=== PATIENT | male | born 1950 | race Caucasian/White ===

== ENCOUNTER 2016-11-25 08:18 | Inpatient (IN) | payer BC ==
[~2016-11-25] VITALS: Ht 172.7 cm; Wt 72.7 kg
[~2016-11-25 08:18] MED LIST: ALBUAER2 INH; AMB10 PO; ANT25 PO; ASCA500 PO; ATV2 PO; CETI10TA84 PO; CHOL100010 PO; CLX20 PO; FLNIN NAE; FSM70 PO; LEVO50TA60 PO; OMEG10007 PO; UNABLE; VITA400C15 PO
[2016-11-25] MEDS ORDERED: SODIUM CHLORIDE 0.9% 1000ML 1,000 ML IV STA (08:31)
[2016-11-25 08:43] LABS: BASO % 0.6 %; BASO ABS # 0.04 K/uL (0-0.2); COMPLETE YES; EOS % 5.8 %; HEMATOCRIT 46.3 % (42-52); IG% 0.1 %; LYMPH % 30.6 %; LYMPH ABS # 2.07 K/uL (1.2-3.4); MEAN CELL VOLUME 96.7 fL (80-100); MEAN CORPUSCULAR HEMOGLOBIN 34.7 pg (25-34); MEAN CORPUSCULAR HGB CONC 35.9 g/dl (32-36); MEAN PLATELET VOLUME 9.5 fL (7.4-10.4); NEUT % 55.9 %; PLATELET COUNT 219 K/uL (130-400); RED BLOOD COUNT 4.79 M/uL (4.7-6.1); WHITE BLOOD COUNT 6.76 K/uL (4.8-10.8)
--- NOTE | 2016-11-25 08:49 | DIAGNOSTIC IMAGING REPORT ---
SINGLE VIEW CHEST CLINICAL HISTORY: Atypical chest pain. FINDINGS: An AP, portable, upright chest radiograph is obtained. No prior studies are available for comparison at the time of dictation. The cardiomediastinal silhouette is unremarkable. The lungs and pleural spaces are clear. No pneumothorax is seen. The bony thorax is grossly intact. IMPRESSION: No active disease in the chest. Electronically signed by: Tawanda Metz M.D. 11/25/2016 8:48 AM Dictated Date/Time: 11/25/2016 8:47 AM
[2016-11-25 08:52] LABS: PARTIAL THROMBOPLASTIN RATIO 0.9; PROTHROMBIN TIME (PATIENT) 10.5 SECONDS (9.0-12.0)
[2016-11-25 09:00] LABS: BUN/CREATININE RATIO 12.8 (10-20); CREATININE 1.3 mg/dl (0.60-1.40); MAGNESIUM 2.2 mg/dl (1.8-2.4); POTASSIUM 4.3 mmol/L (3.5-5.1)
[2016-11-25 09:10] LABS: CKMB/CK RATIO 1.8 (0-3.0); THYROID STIMULATING HORMONE 5.94 uIu/ml (0.300-4.500)
[2016-11-25] MEDS ORDERED: VITACAP26 (09:11)
[2016-11-25] MEDS ORDERED: VNTHFA/IN INH (09:11)
[2016-11-25] MEDS ORDERED: ATV/2 (09:11)
[2016-11-25] MEDS ORDERED: CHOL1000 PO (09:11)
[2016-11-25] MEDS ORDERED: CITA10TA8 PO (09:11)
[2016-11-25] MEDS ORDERED: FLUT0.15 (09:11)
[2016-11-25] MEDS ORDERED: LEVO25TA5 PO (09:11)
[2016-11-25] MEDS ORDERED: ASPIRIN 324 MG CHEW PO STA (09:12)
[2016-11-25] MEDS ORDERED: LORAZEPAM 1 MG TAB PO PRN (10:00)
[2016-11-25] MEDS ORDERED: ZOLPIDEM TARTRATE 5 MG TAB PO PRN (10:00)
[2016-11-25] MEDS ORDERED: POLYETHYLENE (MIRALAX) 17 GM PACK PO PRN (10:00)
[2016-11-25] MEDS ORDERED: NITROGLYCERIN 0.4 MG SL PER TAB CHARGE SL PRN (10:00)
[2016-11-25] MEDS ORDERED: MAGNESIUM HYDROXIDE SUSP 30 ML UDC PO PRN (10:00)
[2016-11-25] MEDS ORDERED: ASPIRIN 325 MG ECTAB PO STA (10:11)
[2016-11-25 10:15] VITALS: O2SAT 96; Ht 172.7 cm; Wt 72.7 kg
--- NOTE | 2016-11-25 10:26 | History and Physical ---
History & Physical Date & Time of Service: Nov 25, 2016 at 10:10 Chief Complaint: Chest Pain Primary Care Physician: Florencio Bertrand M.D. History of Present Illness Source: patient 66 years old man with past medical Hx of border line HTN, anxiety, Meniere's disease and border line diabetes presented to ED with Chest pain associated with nausea, vomiting and dizziness. pain was severe and was referred to right shoulder. Associated with nausea and dizziness, He threw up at home. He drove his car to his PCP (he thought it is his Meniere's disease), had to stop the car to throw up. when he arrived to his PCP they called an Ambulance for him because of his Chest pain. he does not smoke drinks alcohol socially He was found to have new onset Afib Past Medical/Surgical History chest pain New onset A fib border line HTN border line diabetes anxiety Meniere's disease hypothyroidism Family History No pertinent family history father has HTN Social History Smoking Status: Never Smoker Smokeless Tobacco Use: No Alcohol Use: socially Multi-Drug Resistant Organisms History of MDRO: No Allergies Coded Allergies: Codeine (Unverified Allergy, Mild, 07/13/09) Uncoded Allergies: TICK PREVENTION (Allergy, Unknown, unknown, 11/25/16) Home Medications Scheduled Albuterol Hfa (Ventolin Hfa), 2-4 PUFFS INH Q6H Cetirizine (Zyrtec), 10 MG PO DAILY Cholecalciferol (Vitamin D3), 1 TAB PO DAILY Citalopram Hydrobromide (Celexa), 1 TAB PO DAILY Fish Oil ([place]-3), 2 CAP PO DAILY Levothyroxine Sodium (Levothyroxine Sodium), 1 TAB PO DAILY Miscellaneous Medications Fluticasone Propionate (Nasal) (Flonase Allergy Relief) Lorazepam (Ativan) Vitamins C & E (Vitamin C) Review of Systems Constitutional: + sweats, No fever, No chills, No weight loss, No weakness, No fatigue, No problem reported Eyes: No worsening of vision, No eye pain, No redness, No discharge, No diplopia, No problem reported ENT: No hearing loss, No unusual epistaxis, No nasal symptoms, No sore throat, No tinnitus, No dental problems, No trouble swallowing, No problem reported Respiratory: No cough, No sputum, No wheezing, No shortness of breath, No dyspnea on exertion, No dyspnea at rest, No hemoptysis, No problem reported Cardiovascular: + chest pain, No orthopnea, No PND, No edema, No claudication, No palpitations, No problem reported Abdomen: + nausea, + vomiting, No pain, No diarrhea, No constipation, No GI bleeding, No problem reported Musculoskeletal: No joint pain, No muscle pain, No swelling, No calf pain, No problem reported Genitourinary - Male: No hematuria, No dysuria, No urinary frequency, No urinary urgency, No urinary hesitancy, No urinary retention, No urinary incontinence, No penile discharge, No lesions, No impotence, No problem reported Neurologic: No memory loss, No paralysis, No weakness, No numbness/tingling, No vertigo, No balance problems, No problem reported Psychiatric: No depression symptoms, No anhedonism, No anxiety, No insomnia, No substance abuse, No problem reported Endocrine: No fatigue, No excessive thirst, No excessive urination, No problem reported Hematologic / Lymphatic: No abnormal bleeding/bruising, No clotting problems, No swollen lymph nodes, No night sweats, No problem reported Integumentary: No rash, No itch, No new/changing skin lesions, No color change , No bleeding, No problem reported Allergic / Immunologic: No environmental allergies, No seasonal allergies, No pet sensitivities, No food allergies, No hives, No frequent infections, No poor healing, No prolonged convalescence, No problem reported Physical Exam Vital Signs Date Time Temp Pulse Resp B/P (MAP) Pulse Ox O2 Delivery O2 Flow Rate FiO2 11/25/16 09:33 84 24 149/88 96 11/25/16 09:18 81 19 97 11/25/16 09:03 79 16 99 11/25/16 08:48 82 21 98 11/25/16 08:33 99 Room Air 11/25/16 08:33 82 29 97 11/25/16 08:31 149/88 11/25/16 08:31 36.5 86 17 149/88 99 Room Air 11/25/16 08:28 Room Air 11/25/16 08:26 89 General Appearance: WD/WN, no apparent distress Head: normocephalic, atraumatic Eyes: normal inspection, EOMI ENT: normal ENT inspection, + pertinent finding (decreased hearing) Neck: supple, no adenopathy, thyroid normal Respiratory/Chest: chest non-tender, lungs clear, normal breath sounds, no respiratory distress, no accessory muscle use Cardiovascular: no gallop, no murmur, + irregularly irregular Abdomen/GI: normal bowel sounds, non tender, soft, no organomegaly, no pulsatile mass, normal rectal exam Genitourinary - Male: normal male genitalia, normal phallus, normal testicles Back: normal inspection, no CVA tenderness, no muscle spasm Extremities/Musculoskelatal: normal inspection, no calf tenderness, normal capillary refill, no pedal edema Neurologic/Psych: 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 as tested, no motor/sensory deficits, alert, normal mood/affect, normal reflexes, oriented x 3 Skin: normal color, warm/dry, no rash Diagnostics Laboratory Results Results Past 24 Hours Test 11/25/16 08:30 11/25/16 09:43 Range/Units White Blood Count 6.76 4.8-10.8 K/uL Red Blood Count 4.79 4.7-6.1 M/uL Hemoglobin 16.6 14.0-18.0 g/dL Hematocrit 46.3 42-52 % Mean Corpuscular Volume 96.7 80-100 fL Mean Corpuscular Hemoglobin 34.7 25-34 pg Mean Corpuscular Hemoglobin Concent 35.9 32-36 g/dl Platelet Count 219 130-400 K/uL Mean Platelet Volume 9.5 7.4-10.4 fL Neutrophils (%) (Auto) 55.9 % Lymphocytes (%) (Auto) 30.6 % Monocytes (%) (Auto) 7.0 % Eosinophils (%) (Auto) 5.8 % Basophils (%) (Auto) 0.6 % Neutrophils # (Auto) 3.78 1.4-6.5 K/uL Lymphocytes # (Auto) 2.07 1.2-3.4 K/uL Monocytes # (Auto) 0.47 0.11-0.59 K/uL Eosinophils # (Auto) 0.39 0-0.5 K/uL Basophils # (Auto) 0.04 0-0.2 K/uL RDW Standard Deviation 41.4 36.4-46.3 fL RDW Coefficient of Variation 11.8 11.5-14.5 % Immature Granulocyte % (Auto) 0.1 % Immature Granulocyte # (Auto) 0.01 0.00-0.02 K/uL Prothrombin Time 10.5 9.0-12.0 SECONDS Prothromb Time International Ratio 1.0 0.9-1.1 Activated Partial Thromboplast Time 24.1 21.0-31.0 SECONDS Partial Thromboplastin Ratio 0.9 Sodium Level 141 136-145 mmol/L Potassium Level 4.3 3.5-5.1 mmol/L Chloride Level 105 98-107 mmol/L Carbon Dioxide Level 30 21-32 mmol/L Anion Gap 6.0 3-11 mmol/L Blood Urea Nitrogen 17 7-18 mg/dl Creatinine 1.30 0.60-1.40 mg/dl Est Creatinine Clear Calc Drug Dose 54.1 ml/min Estimated GFR () 65.9 Estimated GFR (Non- 56.9 BUN/Creatinine Ratio 12.8 10-20 Random Glucose 100 70-99 mg/dl Calcium Level 9.0 8.5-10.1 mg/dl Magnesium Level 2.2 1.8-2.4 mg/dl Total Creatine Kinase 116 39-308 U/L Creatine Kinase MB 2.1 0.5-3.6 ng/ml Creatine Kinase MB Ratio 1.8 0-3.0 Troponin I 0.015 0-0.045 ng/ml Thyroid Stimulating Hormone (TSH) 5.940 0.300-4.500 uIu/ml Free Thyroxine 1.10 0.80-1.60 ng/dl Bedside D-Dimer 156 0-450 ng/mlFEU CXR normal other (Afib rate controlled) Impression Assessment and Plan 66 years old man with past medical Hx of border line HTN and border line diabetes presented to ED with Chest pain associated with nausea, vomiting and dizziness. pain was severe and was referred to right shoulder. He was found to have new onset Afib Assessment: chest pain New onset A fib border line HTN border line diabetes anxiety Meniere's disease hypothyroidism Plan: I called his PCP office, recent labs showed LDL of 97 and HgbA1C of 5.4 giving his border line HTN his [id number] Score would be 2 Will start him on heparin drip until seen by land conservation specialist will also start low dose lopressor start baby aspirin, that can be stopped if his stress test is negative and heparin can be switched to Eliquis LDL of 97 is border line, will start low dose lipitor as well 2D echo is ordered also sleep pulse ox recorder is ordered to R/O sleep apnea, please follow up on that pepcid was given for GI prophylaxis and to treat any GI source of his pain. VTE Prophylaxis VTE Risk Assessment Done? Y/N: Yes Risk Level: High
[2016-11-25] MEDS ORDERED: HEPARIN 25000 UNIT/500 ML D5W ONE (12:28)
[2016-11-25] MEDS: SODIUM CHLORIDE 0.9% 1000ML 1,000 ML IV SCH (13:30)
[2016-11-25] MEDS ORDERED: HEPARIN IV LOW DOSE NO BOLUS SCH (13:30)
[2016-11-25] MEDS ORDERED: FAMOTIDINE IV INJ 20 MG in DEXTROSE 5% 100ML 100 ML IV ONE (14:00)
[2016-11-25] MEDS ORDERED: ATORVASTATIN 10 MG TAB PO ONE (14:00)
--- NOTE | 2016-11-25 14:26 | CARDIOLOGY CONSULTATION REPORT ---
DATE OF CONSULTATION: 11/25/2016 DATE OF CONSULTATION: 11/25/2016. REASON FOR CONSULTATION: 1. Chest pain, uncertain etiology. 2. Newly diagnosed atrial fibrillation with controlled ventricular response rate. HISTORY OF PRESENT ILLNESS: Mr. Calderón is a very pleasant 66-year-old white male with a history of Meniere's disease, Anxiety, borderline Hypertension, and Prediabetes who presented acutely to the Emergency Room today complaining of some right sided chest discomfort - described as a pressure - in his right chest, which started this morning while he was getting ready for work. He noted some associated nausea, but denied any associated diaphoresis or dyspnea. It was not worse with exertion, nor did it improve when he sat down and rested. Admittedly, the patient has been under a tremendous amount of stress lately. His adffwodp-nw-aew (and mother to his 5-year-old grandson) of a heroin overdose with in the past 5 weeks, and he recently attended a memorial service for her. This had been tremendously stressful for him -- as he also lost his at a young age (non-Hodgkin's lymphoma) and also had a daughter with Down's syndrome of congenital heart disease at the age of 30. He has been ruminating on these issues almost nonstop since he heard of his jtsvxpir-[id number]'s passing. Nonetheless, the patient went to this PCPs office to get an acute visit, and they referred him to the Emergency Room. The patient was incidentally noted to be in Atrial Fibrillation with a controlled ventricular response rate (V-rate in the 80s at rest). The patient denies any prior cardiac history or prior cardiac events. He is active on a daily basis doing a " workout", running up to 3 miles. The last time he ran was a week ago, and he did not have any decrease in his exertional tolerance, nor did he experience any limiting cardiopulmonary symptoms. The patient denies any chest pain at the present time. He specifically denies any history of exertional chest pain, heaviness, tightness, pressure or discomfort. No shortness of breath, unusual dyspnea on exertion, or new recent changes in exertional tolerance. He denies any orthopnea or PND. He denies any palpations, tachypalpitations, syncope, or near syncope. The patient does admit to chronic vertigo associated with Meniere's disease. PAST MEDICAL HISTORY: 1. Borderline Hypertension. 2. Prediabetes mellitus. 3. Dyslipidemia, on long-term statin. 4. History of anxiety disorder. 5. Meniere's disease. 6. Hypothyroidism. 7. He specifically denies any history of CAD, VA, CHF, rheumatic fever or prior cardiac dysrhythmias. He denies any history of stroke or mini-stroke. SOCIAL HISTORY: The patient is . He has 2 grown sons, but his [id number] recently of a heroin overdose. The patient had a daughter who at the age of 30 from Down syndrome with congenital heart disease. The patient is a nonsmoker. He drinks alcohol socially. Exercises on a daily basis. 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 He is also earning his master's degree in [employer]. FAMILY HISTORY: 1. No family history of premature coronary artery disease. 2. Father with hypertension. 3. Daughter with Down syndrome and congenital heart disease. MEDICATIONS: 1. Celexa 20 mg daily. 2. Aspirin 81 mg daily. 3. Lipitor 10 mg daily. 4. Levothyroxine 25 mcg daily. 5. Toprol XL 25 mg daily. 6. Heparin drip. 7. Famotidine 20 mg IV q. 12 hours. 8. Lorazepam 1 mg p.o. q. 6 hours p.r.n. for anxiety. 9. Milk of magnesia p.r.n. 10. Ambien 5 mg p.o. at bedtime p.r.n. for insomnia. 11. Sublingual nitroglycerin p.r.n. 12. MiraLax 17 grams daily. 13. Normal saline 50 mL per hour. ALLERGIES: CODEINE. PHYSICAL EXAMINATION: VITAL SIGNS: Temperature 36.5*C, pulse 80-85 and irregularly irregular, respiration rate 14 and unlabored, blood pressure 128/90, SPO2 is 96% on room air. GENERAL: The patient is in no acute distress. HEAD, EYES, EARS, NOSE, AND THROAT: Head is atraumatic, normocephalic. EOM intact. Sclera anicteric. Faces symmetric. No perioral cyanosis. Mucous membranes moist. NECK: Without thyromegaly, adenopathy or JVD. Carotid upstrokes +2 bilaterally without bruits. CHEST AND LUNGS: Are clear to auscultation throughout all lung duval. No wheezes, rales or rhonchi. CARDIOVASCULAR SYSTEM: S1 and S2 are irregularly irregular with a controlled ventricular response rate. No murmurs, gallops, or rubs. PMI is nondisplaced. No lifts, heaves, or thrills. No abdominal, aortic or renal bruits. ABDOMINAL EXAMINATION: Bowel sounds present. No masses, organomegaly, or tenderness. EXTREMITIES: Are without clubbing, cyanosis or edema. Intact radial and posterior tibial pulses bilaterally. NEUROLOGIC EXAMINATION: Patient is awake, alert and interactive. He answers questions appropriately. Speech is clear. Normal movement in all 4 extremities. [place] pattern not assessed. EKG on admission shows atrial fibrillation with a controlled ventricular response rate of 72 beats per minute, no acute changes noted. LABORATORY DATA: White blood cell count 6.76, hemoglobin 16.6 g/dL, hematocrit 46.3%, and platelet count 219,000. Sodium is 141 mmol/L, potassium 4.3 mmol/L, BUN 17, creatinine 1.30 mg/dL. Serum magnesium level normal at 2.2. Total CK is 116 units per liter with CK-MB of 2.1 ng/mL. Troponin I 0.015 ng/mL. TSH is elevated at 5.940 uIU/mL. Coag studies and D-dimer unremarkable. Chest x-ray shows no acute changes. Current telemetry monitoring reveals atrial fibrillation with controlled ventricular response rate. ASSESSMENT: 1. Right sided chest pain since this morning, uncertain etiology, doubt that it is related to rate controlled atrial fibrillation -- possibly a stress reaction. 2. Newly diagnosed Atrial Fibrillation with controlled ventricular response rate. 3. No palpitations, or sensation of irregular or abnormal pulse rate. 4. Dyslipidemia, on mcc statin. 5. Borderline hypertension. 6. Prediabetes mellitus. 7. Recent loss of loved one secondary to heroin overdose. 8. Anxiety/stress reaction. PLAN: 1. The patient was noted to be in rate controlled atrial fibrillation today. We had a very long discussion regarding what this rhythm is, the natural history of atrial fibrillation, as well as various management strategies. I truly doubt that his atrial fibrillation is contributing to his chest pain as his heart rate is very well controlled. His A-Fib is likely an incidental finding. 2. Agree with admission for serial cardiac enzymes to further evaluate right sided chest pain. This may be a manifestation of stress and anxiety considering his recent loss of a family member and significant familial losses throughout his lifetime ( and daughter). 3. Agree with using low dose beta chantal, Toprol XL 25 mg a day. 4. Agree with heparin drip for the time being. 5. The patient's CHADS/VASc score is minimum of 2. He would benefit by long-term anticoagulation. 6. Would recommend starting on Eliquis 5 mg b.i.d. or Xarelto 20 mg daily upon discharge. Continue heparin drip in the meantime. 7. Monitor daily laboratories. 8. Agree with telemetry monitoring. 9. We will plan on following up with this patient within 3 weeks of discharge, and if he remains in atrial fibrillation could consider an elective electrical cardioversion. 10. We will continue to follow this patient along while hospitalized. CONNIE
--- NOTE | 2016-11-25 15:08 | EMERGENCY ROOM VISIT NOTE ---
History Report prepared by Zoltan: Pura Godoy Under the Supervision of: Dr. Tyler Xiao M.D. First contact with patient: 08:20 Chief Complaint: CHEST PAIN Stated Complaint: CHEST PAIN History of Present Illness The patient is a 66 year old male who presents to the Emergency Room with complaints of worsening chest pain starting this morning. The patient describes the pain as a pressure on his chest. He states that the chest pain was spread out originally, but that he runs often and thought nothing of it. He states that he called the ambulance because the pain started to centralize in his chest and go down his left arm. The patient denies pain going into his neck and abdominal pain. He states that he was nauseous and vomited, but had nothing come up. He states that he does take Ativan for anxiety. He currently states that his chest pain has subsided. The patient reports that he does regularly take an Aspirin. Source of History: patient Onset: this morning Position: chest Quality: pressure Timing: worsening Associated Symptoms: + nausea, + vomiting, No abdominal pain Note: The patient complains of pain radiating into left arm. The patient denies the pain radiating into his neck. Review of Systems See HPI for pertinent positives & negatives. A total of 10 systems reviewed and were otherwise negative. Past Medical & Surgical Medical Problems: (1) Anxiety (2) New onset a-fib Family History No pertinent family history Social History Marital Status: Housing Status: lives alone Occupation Status: employed Current/Historical Medications Scheduled Albuterol Hfa (Ventolin Hfa), 2-4 PUFFS INH Q6H Cetirizine (Zyrtec), 10 MG PO DAILY Cholecalciferol (Vitamin D3), 1 TAB PO DAILY Citalopram Hydrobromide (Celexa), 1 TAB PO DAILY Fish Oil ([place]-3), 2 CAP PO DAILY Levothyroxine Sodium (Levothyroxine Sodium), 1 TAB PO DAILY Miscellaneous Medications Fluticasone Propionate (Nasal) (Flonase Allergy Relief) Lorazepam (Ativan) Vitamins C & E (Vitamin C) Allergies Coded Allergies: Codeine (Unverified Allergy, Mild, 07/13/09) Uncoded Allergies: TICK PREVENTION (Allergy, Unknown, unknown, 11/25/16) Physical Exam Vital Signs Date Time Temp Pulse Resp B/P (MAP) Pulse Ox O2 Delivery O2 Flow Rate FiO2 11/25/16 09:33 84 24 149/88 96 11/25/16 09:18 81 19 97 11/25/16 09:03 79 16 99 11/25/16 08:48 82 21 98 11/25/16 08:33 99 Room Air 11/25/16 08:33 82 29 97 11/25/16 08:31 149/88 11/25/16 08:31 36.5 86 17 149/88 99 Room Air 11/25/16 08:28 Room Air 11/25/16 08:26 89 Physical Exam GENERAL: Patient is anxious appearing and in no acute distress. HEENT: No acute trauma, normocephalic atraumatic, mucous membranes moist, no nasal congestion, no scleral icterus. NECK: No stridor, no adenopathy, no meningismus, trachea is midline. LUNGS: No dyspnea. Clear to auscultation and equal bilaterally. No wheeze, no rhonchi. HEART: Irregular rate and rhythm. No murmurs, rubs, gallops appreciated. ABDOMEN: Soft, nontender, bowel sounds positive, no masses appreciated, no peritonitis. BACK: No midline tenderness, no CVA tenderness EXTREMITIES: Normal motion all extremities, no cyanosis, no edema. NEUROLOGIC: Alert and oriented, no acute motor or sensory deficits, no focal weakness, cranial nerves grossly intact. SKIN: No rash, no jaundice, no diaphoresis. Medical Decision & Procedures ER Provider Diagnostic Interpretation: Radiology results and stated below per my review and radiologist interpretation: SINGLE VIEW CHEST CLINICAL HISTORY: Atypical chest pain. FINDINGS: An AP, portable, upright chest radiograph is obtained. No prior studies are available for comparison at the time of dictation. The cardiomediastinal silhouette is unremarkable. The lungs and pleural spaces are clear. No pneumothorax is seen. The bony thorax is grossly intact. IMPRESSION: No active disease in the chest. Electronically signed by: Tawanda Metz M.D. 11/25/2016 8:48 AM Dictated Date/Time: 11/25/2016 8:47 AM Laboratory Results 11/25/16 08:30 Red Blood Count 4.79, Mean Corpuscular Volume 96.7, Mean Corpuscular Hemoglobin 34.7, Mean Corpuscular Hemoglobin Concent 35.9, Mean Platelet Volume 9.5, Neutrophils (%) (Auto) 55.9, Lymphocytes (%) (Auto) 30.6, Monocytes (%) (Auto) 7.0, Eosinophils (%) (Auto) 5.8, Basophils (%) (Auto) 0.6, Neutrophils # (Auto) 3.78, Lymphocytes # (Auto) 2.07, Monocytes # (Auto) 0.47, Eosinophils # (Auto) 0.39, Basophils # (Auto) 0.04 11/25/16 08:30 Test 11/25/16 08:30 11/25/16 09:43 White Blood Count 6.76 K/uL (4.8-10.8) Red Blood Count 4.79 M/uL (4.7-6.1) Hemoglobin 16.6 g/dL (14.0-18.0) Hematocrit 46.3 % (42-52) Mean Corpuscular Volume 96.7 fL (80-100) Mean Corpuscular Hemoglobin 34.7 pg (25-34) Mean Corpuscular Hemoglobin Concent 35.9 g/dl (32-36) Platelet Count 219 K/uL (130-400) Mean Platelet Volume 9.5 fL (7.4-10.4) Neutrophils (%) (Auto) 55.9 % Lymphocytes (%) (Auto) 30.6 % Monocytes (%) (Auto) 7.0 % Eosinophils (%) (Auto) 5.8 % Basophils (%) (Auto) 0.6 % Neutrophils # (Auto) 3.78 K/uL (1.4-6.5) Lymphocytes # (Auto) 2.07 K/uL (1.2-3.4) Monocytes # (Auto) 0.47 K/uL (0.11-0.59) Eosinophils # (Auto) 0.39 K/uL (0-0.5) Basophils # (Auto) 0.04 K/uL (0-0.2) RDW Standard Deviation 41.4 fL (36.4-46.3) RDW Coefficient of Variation 11.8 % (11.5-14.5) Immature Granulocyte % (Auto) 0.1 % Immature Granulocyte # (Auto) 0.01 K/uL (0.00-0.02) Prothrombin Time 10.5 SECONDS (9.0-12.0) Prothromb Time International Ratio 1.0 (0.9-1.1) Activated Partial Thromboplast Time 24.1 SECONDS (21.0-31.0) Partial Thromboplastin Ratio 0.9 Anion Gap 6.0 mmol/L (3-11) Est Creatinine Clear Calc Drug Dose 54.1 ml/min Estimated GFR () 65.9 Estimated GFR (Non- 56.9 BUN/Creatinine Ratio 12.8 (10-20) Calcium Level 9.0 mg/dl (8.5-10.1) Magnesium Level 2.2 mg/dl (1.8-2.4) Total Creatine Kinase 116 U/L (39-308) Creatine Kinase MB 2.1 ng/ml (0.5-3.6) Creatine Kinase MB Ratio 1.8 (0-3.0) Troponin I 0.015 ng/ml (0-0.045) Thyroid Stimulating Hormone (TSH) 5.940 uIu/ml (0.300-4.500) Free Thyroxine 1.10 ng/dl (0.80-1.60) Bedside D-Dimer 156 ng/mlFEU (0-450) Laboratory results as reviewed by me. Medications Administered Medications (Trade) Dose Ordered Sig/Renzo Route Start Time Stop Time Status Last Admin Dose Admin Sodium Chloride 1,000 ml @ 999 mls/hr Q1H1M STAT IV 11/25/16 08:31 11/25/16 09:31 DC 11/25/16 08:35 999 MLS/HR Aspirin (Aspirin Chew) 324 mg NOW STAT PO 11/25/16 09:12 11/25/16 10:28 DC 11/25/16 09:12 324 MG ECG Indication: chest pain Rate (beats per minute): 72 Rhythm: atrial fibrillation Findings: ST depression (Lateral), no ectopy, other (no STEMI appreciated) ED Course 0822: The patient was evaluated in room A2. A complete history and physical exam was performed. 0831: Ordered NSS 1000 ml @ 999 mls/hr IV. 12: Ordered Aspirin 324 mg PO. 16: Discussed the patient's [facility] The patient will be evaluated for further treatment and disposition. Medical Decision Medication Reconciliation: I attest that I have personally reviewed the patient 's current medication list. Blood pressure screening: Patient was found to have an elevated blood pressure and will be managed by a hospitalist for further treatment. Differential: Cardiac Ischemia (STEMI, NSTEMI, Unstable Angina, etc), Aortic Dissection, Arrhythmia, Pulmonary Embolism, Pneumonia, Pneumothorax, MSK, Infectious, Pericarditis/Myocarditis, Esophageal Rupture, Gastrointestinal, amongst other pathologies entertained. 66 yr old male arrives for evaluation of substernal chest pressure which has resolved prior to evaluation. EKG without STEMI though there is new onset Afib which he denies having before. Initial trop negative though within last 6 hours from onset pain. With New onset afib along with recent chest pressure I feel he will need to be further monitored and worked in hospital. Stable, breathing comfortably and in no distress throughout ED stay. Given ASA 324mg for cardiac prophylaxis. Consults Time Called: 911 Consulting Physician: [facility] Returned Call: [phone] Discussed the patient's case with Dr[facility] The patient will be evaluated for further treatment and disposition. Impression Primary Impression: Substernal precordial chest pain Additional Impression: Atrial fibrillation Scribe Attestation The scribe's documentation has been prepared under my direction and personally reviewed by me in its entirety. I confirm that the note above accurately reflects all work, treatment, procedures, and medical decision making performed by me. Departure Information Dispostion Being Evaluated By Hospitalist Referrals Florencio Bertrand M.D. (PCP) Patient Instructions My [facility] Problem Qualifiers
[2016-11-25] MEDS: METOPROLOL SUCC 25MG EXT REL TAB PO SCH (15:23)
[2016-11-25 15:43] VITALS: BP 116/80; PULSE 81; TEMP 36.4; O2SAT 97
[2016-11-25 15:56] VITALS: BP 127/83; PULSE 79; TEMP 36.4; O2SAT 98
[2016-11-25 16:00] VITALS: O2SAT 98
--- NOTE | 2016-11-25 18:48 | DIAGNOSTIC IMAGING REPORT ---
CHEST ONE VIEW PORTABLE HISTORY: New onset atrial fibrillation. COMPARISON: Chest 11/25/2016. FINDINGS: The lungs are clear. Cardiac silhouette is normal in size. No pleural effusions. No pneumothorax. IMPRESSION: No acute process. Electronically signed by: Jc Taylor M.D. 11/25/2016 6:46 PM Dictated Date/Time: 11/25/2016 6:45 PM
[2016-11-25 19:34] VITALS: BP 120/79; PULSE 67; TEMP 36.3; O2SAT 97
[2016-11-25 19:46] LABS: PARTIAL THROMBOPLASTIN RATIO 1.4
[2016-11-25] MEDS ORDERED: HEPARIN IV BOLUS 4,500 UNIT in SYRINGE 0 ML IV ONE (20:30)
[2016-11-25] MEDS: FAMOTIDINE IV INJ 20 MG in DEXTROSE 5% 100ML 100 ML IV SCH (20:41)
[2016-11-25 23:36] VITALS: BP 120/80; PULSE 85; TEMP 36.4; O2SAT 98
[2016-11-26] VITALS (12 sets, daily range): BP systolic 91–120; BP diastolic 65–75; PULSE 63–97; TEMP 36.1–36.5; O2SAT 84–99
[2016-11-26 02:53] LABS: PARTIAL THROMBOPLASTIN RATIO 3.1
[2016-11-26] MEDS: HEPARIN 25,000 UNIT/500ML D5W 500 ML IV PRN ×2 (03:24→12:01)
[2016-11-26] MEDS: LEVOTHYROXINE 25 MCG TAB PO SCH (06:11)
[2016-11-26] MEDS: CITALOPRAM 20 MG TAB PO SCH (08:11)
[2016-11-26] MEDS: ATORVASTATIN 10 MG TAB PO SCH (08:11)
[2016-11-26] MEDS: METOPROLOL SUCC 25MG EXT REL TAB PO SCH (08:11)
[2016-11-26] MEDS: FAMOTIDINE IV INJ 20 MG in DEXTROSE 5% 100ML 100 ML IV SCH ×2 (08:59→21:23)
[2016-11-26] MEDS: SODIUM CHLORIDE 0.9% 1000ML 1,000 ML IV SCH (09:00)
[2016-11-26] MEDS ORDERED: ASPIRIN 81 MG ECTAB PO SCH (09:00)
[2016-11-26 09:20] LABS: BASO % 0.6 %; BASO ABS # 0.04 K/uL (0-0.2); COMPLETE YES; EOS % 4.6 %; IG% 0.1 %; LYMPH % 34.9 %; LYMPH ABS # 2.45 K/uL (1.2-3.4); MEAN CELL VOLUME 96.6 fL (80-100); MEAN CORPUSCULAR HEMOGLOBIN 34.8 pg (25-34); MEAN PLATELET VOLUME 9.7 fL (7.4-10.4); MONO % 8.5 %; NEUT % 51.3 %; PLATELET COUNT 207 K/uL (130-400); RED BLOOD COUNT 4.97 M/uL (4.7-6.1); WHITE BLOOD COUNT 7.03 K/uL (4.8-10.8)
[2016-11-26 09:55] LABS: BUN/CREATININE RATIO 12.8 (10-20); CALCIUM 8.5 mg/dl (8.5-10.1); CREATININE 1.3 mg/dl (0.60-1.40); MAGNESIUM 2.3 mg/dl (1.8-2.4); POTASSIUM 4.2 mmol/L (3.5-5.1)
[2016-11-26 09:59] LABS: ALB/GLOB RATIO 0.9 (0.9-2); CHOLESTEROL/HDL RATIO 2.8; PHOSPHORUS 2.6 mg/dl (2.5-4.9)
[2016-11-26 11:20] LABS: PARTIAL THROMBOPLASTIN RATIO 1.7
[2016-11-26] MEDS ORDERED: HEPARIN IV BOLUS 3,000 UNIT in SYRINGE 0 ML IV ONE (11:45)
--- NOTE | 2016-11-26 11:48 | Hospitalist Progress Note ---
Hospitalist Progress Note Date of Service Nov 26, 2016. (Clara Solomon PA-C) Subjective Pt evaluation today including: conversation w/ patient, physical exam, chart review, lab review, review of studies, review of inpatient medication list Patient seen and evaluated. Admitted yesterday for new onset atrial fibrillation with rate controlled. Elevated troponins that peaked at 7.5 and trending down. Patient is sitting in bedside chair in no acute distress. He currently has no chest pain, shortness of breath, and all presenting symptoms are currently resolved. Patient is due for cardiac catheterization later this afternoon. Patient also expresses a lot of increased stress. Reporting that recently the anniversary of his and daughter's occurred. As well, his daughter-in -law a recently passed from a drug overdose. He reports concern for his grandson who is only 5 as this was the age his son lost their mother. Patient is generally active running almost 3 miles several times a week. He does not smoke. Tolerating Lopressor with no adverse effect. Additional Comments: REVIEW OF SYSTEMS: General/Constitutional: Denies fever/chills, fatigue, weakness ENT: + H/O Meniere's; Denies visual changes, nasal drainage, sore throat, trouble swallowing Cardiovascular: Denies chest pain, palpitations, edema Respiratory: Denies cough, sputum, SOB, wheezing, orthopnea GI: Denies nausea, vomiting, abdominal pain, constipation, diarrhea, melena/ hematochezia : Denies dysuria, frequency, hematuria Musculoskeletal: Denies joint/muscle aches, weakness, swelling Neurologic: Denies dizziness/lightheadedness, numbness/tingling, weakness Psychiatric: + multiple life stressors (loss of loved ones) Endocrine: Deferred Hematologic/Lymphatic: Denies bleeding/clotting abnormalities Skin: Denies rash, itch, new skin changes, easy bruising Allergy/Immunologic: Deferred (Clara Solomon, ABDOULAYEC) Medications Current Inpatient Medications Medications (Trade) Dose Ordered Sig/Renzo Route Start Time Stop Time Status Last Admin Dose Admin Citalopram Hydrobromide (celeXA TAB) 10 mg DAILY PO 11/26/16 09:00 12/26/16 08:59 11/26/16 08:11 10 MG Levothyroxine Sodium (Synthroid Tab) 25 mcg DAILYBB PO 11/26/16 06:00 7/21/17 06:59 11/26/16 06:11 25 MCG Lorazepam (Ativan Tab) 1 mg Q6 PRN PO 11/25/16 10:00 12/25/16 09:59 Sodium Chloride 1,000 ml @ 50 mls/hr Q20H IV 11/25/16 13:30 12/25/16 13:29 11/26/16 09:00 50 MLS/HR Magnesium Hydroxide (Milk Of Magnesia Susp) 30 ml Q12H PRN PO 11/25/16 10:00 12/25/16 09:59 Zolpidem Tartrate (Ambien Tab) 5 mg HSZ PRN PO 11/25/16 10:00 12/25/16 09:59 Nitroglycerin (Nitrostat Tab) 0.4 mg UD PRN SL 11/25/16 10:00 12/25/16 09:59 Polyethylene (Miralax Powder Packet) 17 gm DAILY PRN PO 11/25/16 10:00 12/25/16 09:59 Famotidine 20 mg/ Dextrose 102 ml @ 200 mls/hr Q12 IV 11/25/16 21:00 12/25/16 20:59 11/26/16 08:59 200 MLS/HR Aspirin (Ecotrin Tab) 81 mg QAM PO 11/26/16 09:00 12/26/16 08:59 11/26/16 08:11 81 MG Atorvastatin Calcium (Lipitor Tab) 10 mg QAM PO 11/26/16 09:00 12/26/16 08:59 11/26/16 08:11 10 MG Metoprolol Succinate (Toprol Xl Tab) 25 mg QAM PO 11/25/16 14:00 12/25/16 13:59 11/26/16 08:11 25 MG Heparin Sodium/ Dextrose 500 ml @ 18 mls/hr Q24H PRN IV 11/25/16 14:30 12/25/16 14:29 Heparin Sodium (Porcine) 3000 unit/Syringe 3 ml @ 10 mls/min 1145 ONCE IV 11/26/16 11:45 11/26/16 11:46 (Clara Solomon, ANAHY) Objective Vital Signs Date Time Temp Pulse Resp B/P (MAP) Pulse Ox O2 Delivery O2 Flow Rate FiO2 11/26/16 10:39 36.3 72 18 120/74 98 Room Air 11/26/16 08:30 Room Air 11/26/16 08:05 36.3 72 18 120/74 (89) 98 Room Air 11/26/16 04:15 36.5 67 18 116/72 (87) 97 11/26/16 04:00 Room Air 11/26/16 00:00 Room Air 11/25/16 23:36 36.4 85 18 120/80 (93) 98 Room Air 11/25/16 20:00 Room Air 11/25/16 19:34 36.3 67 20 120/79 (93) 97 Room Air 11/25/16 16:00 98 Room Air 11/25/16 15:56 36.4 79 18 127/83 (98) 98 Room Air 11/25/16 15:43 36.4 81 16 116/80 (92) 97 Room Air 11/25/16 12:24 82 17 114/74 98 11/25/16 12:17 82 17 114/74 98 Room Air (Clara Solomon, PA-C) Physical Exam Notes: PHYSICAL EXAM:: General Appearance: WDWN but thin in NAD who is A&O x 3 HEENT: Head is normocephalic/atraumatic; EOMI; PERRLA; Hearing grossly intact with hearing aids; Mucous membranes moist; Pharynx negative for exudate/lesions Neck: Supple; Trachea midline; Neg JVD; Neg lymphadenopathy Heart: irregularly irregulary with no M/G/R Lungs: CTA in all lung duval bilaterally; Respirations unlabored; Neg accessory muscle use Abdomen: Soft, non-tender, non-distended; Positive BS x 4 quadrants; Neg organomegaly Extremities: Capillary refill < 2 seconds; Neg cyanosis or edema Neurological: Speech clear; Gross motor/sensory function intact; Neg focal neurologic deficits Psychiatric: Appropriate mood/affect Skin: Normal Color; Warm/Dry; Neg rashes, ecchymosis, lacerations/ulcerations (Clara Solomon, PA-C) Laboratory Results Last 24 Hours Test 11/25/16 16:08 11/25/16 19:19 11/25/16 23:25 11/26/16 02:14 Total Creatine Kinase 195 U/L 176 U/L Troponin I 5.780 ng/ml 7.510 ng/ml Activated Partial Thromboplast Time 36.2 SECONDS 81.6 SECONDS Partial Thromboplastin Ratio 1.4 3.1 Test 11/26/16 09:03 11/26/16 09:57 White Blood Count 7.03 K/uL Red Blood Count 4.97 M/uL Hemoglobin 17.3 g/dL Hematocrit 48.0 % Mean Corpuscular Volume 96.6 fL Mean Corpuscular Hemoglobin 34.8 pg Mean Corpuscular Hemoglobin Concent 36.0 g/dl Platelet Count 207 K/uL Mean Platelet Volume 9.7 fL Neutrophils (%) (Auto) 51.3 % Lymphocytes (%) (Auto) 34.9 % Monocytes (%) (Auto) 8.5 % Eosinophils (%) (Auto) 4.6 % Basophils (%) (Auto) 0.6 % Neutrophils # (Auto) 3.61 K/uL Lymphocytes # (Auto) 2.45 K/uL Monocytes # (Auto) 0.60 K/uL Eosinophils # (Auto) 0.32 K/uL Basophils # (Auto) 0.04 K/uL RDW Standard Deviation 42.0 fL RDW Coefficient of Variation 11.8 % Immature Granulocyte % (Auto) 0.1 % Immature Granulocyte # (Auto) 0.01 K/uL Sodium Level 139 mmol/L Potassium Level 4.2 mmol/L Chloride Level 104 mmol/L Carbon Dioxide Level 31 mmol/L Anion Gap 4.0 mmol/L Blood Urea Nitrogen 17 mg/dl Creatinine 1.30 mg/dl Est Creatinine Clear Calc Drug Dose 54.1 ml/min Estimated GFR () 65.9 Estimated GFR (Non- 56.9 BUN/Creatinine Ratio 12.8 Random Glucose 98 mg/dl Calcium Level 8.5 mg/dl Phosphorus Level 2.6 mg/dl Magnesium Level 2.3 mg/dl Total Bilirubin 0.8 mg/dl Aspartate Amino Transf (AST/SGOT) 27 U/L Alanine Aminotransferase (ALT/SGPT) 24 U/L Alkaline Phosphatase 82 U/L Troponin I 5.240 ng/ml Total Protein 6.9 gm/dl Albumin 3.2 gm/dl Globulin 3.7 gm/dl Albumin/Globulin Ratio 0.9 Triglycerides Level 54 mg/dl Cholesterol Level 186 mg/dl HDL Cholesterol 67 mg/dl LDL Cholesterol, Calculated 108 mg/dl VLDL Cholesterol, Calculated 11 mg/dl Cholesterol/HDL Ratio 2.8 Activated Partial Thromboplast Time 43.7 SECONDS Partial Thromboplastin Ratio 1.7 (Clara Solomon, PAJohnathanC) Assessment and Plan Mr. Calderón is a 66 y/o male with PMHx of Borderline HTN, Pre-Diabetes, and Meniere 's Disease who presents for CP, N/V, and dizziness. Noted to be in new onset AFib with rate control. New Onset Atrial Fibrillation: Rate Control - Appears in A Flutter on tele - possibly caused from NSTEMI - Metoprolol succ 25 mg daily NSTEMI: - Initial trop negative on admission but trended up to 7.5 and trending down - currently no CP - Echocardiogram - evaluate for any wall motion abnormality - ASA 81 mg daily - Atorvastatin 10 mg daily - likely will increase dosage - will await catheterization results - Cardiology following - recommendations reviewed - plan for catheterization Hypothyroidism: - Mildly elevated TSH with normal T4 - will hold off on medication adjustment - Synthroid 25 mcg daily Anxiety: - Acutely exacerbated by and daughter and recent passing of daughter- in-law Borderline HTN and Pre-DM: Monitor Meniere's Disease: STABLE - When NPO lifted can utilize low-sodium diet DVT Prophylaxis: Heparin gtt Code Status: FULL RESUSCITATION Disposition: - Cardiac catheterization - Will need insurance evaluations for NOAC to evaluate affordability - Eliquis or Xarelto Continued [facility] stay due to: multiple IV medications needed Discharge planning: uncertain (Clara Solomon, PA-C) Attending Attestation & Admission Note: Pt seen/examined, chart reviewed, and care plan d/w TASIA Solomon. I agree w/ the sánchez components of her documentation. I saw the patient post- cath - he "feels good" with no sob, page, chest pain, or palpitations. Mentions he drove nearly 10 hours from [place] < 1 week ago. He also had an episode of visual disturbance about 2-3 weeks ago; none since. 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 VSS, afebrile tele - rate controlled a. fib A/P: 1. new onset a. fib - chronicity unknown as he has no symptoms from this. CHADS is at least a 2 - agree with anticoagulation, perhaps a DOAC at discharge. 2. +troponin - appears to be type 2 [place] / myocardial demand ischemia - but unsure from what process. Cardiac cath completely normal today. PEs?? At risk of such due to recent prolonged travel. Plan - heparin drip overnight. CTA chest in am. Since cath was normal can d/c aspirin. 3. hypothyroidism - TSH mildly high; consider titration upwards. Leave IVF running overnight due to contrast load from cath today. Heparin drip. Then CTA chest in am. Avis FOSS MD (James Foss MD)
[2016-11-26] MEDS ORDERED: NiCARDipine HCL INJ 2.5 MG/ML 10 ML AMP ONE (16:17)
[2016-11-26] MEDS ORDERED: FENTANYL CITRATE INJ 50 MCG/1 ML 2 ML VIAL ONE (16:17)
[2016-11-26] MEDS ORDERED: MIDAZOLAM HCL 1 MG/ML 2ML VIAL ONE (16:17)
[2016-11-26] MEDS ORDERED: HEPARIN SOD (PORCINE) 1000 UNIT/ML 10 ML VIAL ONE (16:17)
[2016-11-26] MEDS ORDERED: NITROGLYCERIN/D5W 100MCG/ML 20ML SYR ONE (16:18)
--- NOTE | 2016-11-26 16:52 | ECHOCARDIOGRAM REPORT ---
*NOTICE TO RECEIVING REPUBLICAN AGENCY This information is strictly Confidential and protected under [place] law. [place] law prohibits you from making any further disclosure of this information unless further disclosure is expressly permitted by the written consent of the person to whom it pertains or is authorized by law. A general authorization for the release of medical or other information is not sufficient for this purpose. Hospital accepts no responsibility if the information is made available to any other person, INCLUDING THE PATIENT. Interpretation Summary * Name: MICHEL CHENEY Study Date: 11/26/2016 03:35 PM BP: 102/66 mmHg * Patient Location: C.2T\S\S243\S\1 HR: 63 * : 1950 (M/d/yyyy) Gender: Male Height: 68 in * Age: 66 yrs Ethnicity: [place] Weight: 165 lb * Ordering Physician: Gladys Blevins * Performed By: Jaclyn Chacon * * Reason For Study: A-FIB * BSA: 1.9 m2 * -- Conclusions -- * Left ventricular systolic function is normal. * There is mild mitral regurgitation. Procedure Details * A complete two-dimensional transthoracic echocardiogram was performed (2D, M-mode, Doppler and color flow Doppler). Left Ventricle * The left ventricle is normal in size. * There is normal left ventricular wall thickness. * Ejection Fraction = >70 %. * Left ventricular systolic function is normal. Right Ventricle * The right ventricle is normal in size and function. Atria * The left atrial size is normal. * Right atrial size is normal. Mitral Valve * The mitral valve anatomy is normal. * There is mild mitral regurgitation. Tricuspid Valve * The tricuspid valve is not well visualized, but is grossly normal. * Significant tricuspid regurgitation is absent. Aortic Valve * The aortic valve is normal in structure and function. * No hemodynamically significant valvular aortic stenosis. * No aortic regurgitation is present. Pericardium/Pleural * There is no pericardial effusion. Great Vessels * Normal inferior vena cava diameter and respiratory variation suggests normal central venous pressure. MMode 2D Measurements and Calculations IVSd 1.1 cm IVSs 1.9 cm LVIDd 3.7 cm LVIDs 2.1 cm LVPWd 1.1 cm LVPWs 1.9 cm IVS/LVPW 1.0 FS 43.5 % EDV(Teich) 56.3 ml ESV(Teich) 13.8 ml EF(Teich) 75.5 % EDV(cubed) 48.6 ml ESV(cubed) 8.8 ml EF(cubed) 81.9 % % IVS thick 66.9 % % LVPW thick 71.8 % LV mass(C)d 131.4 grams LV mass(C)dI 69.7 grams/m\S\2 LV mass(C)s 162.4 grams LV mass(C)sI 86.3 grams/m\S\2 SV(Teich) 42.5 ml SI(Teich) 22.6 ml/m\S\2 SV(cubed) 39.9 ml SI(cubed) 21.2 ml/m\S\2 ACS 1.6 cm LA dimension 3.9 cm asc Aorta Diam 3.2 cm LVOT diam 1.8 cm LVOT area 2.4 cm\S\2 LVAd ap4 21.6 cm\S\2 LVLd ap4 7.3 cm EDV(MOD-sp4) 51.0 ml EDV(sp4-el) 54.1 ml LVAs ap4 10.0 cm\S\2 LVLs ap4 6.2 cm ESV(MOD-sp4) 12.8 ml ESV(sp4-el) 13.7 ml EF(MOD-sp4) 74.8 % EF(sp4-el) 74.7 % LVAd ap2 22.5 cm\S\2 LVLd ap2 7.1 cm EDV(MOD-sp2) 57.3 ml EDV(sp2-el) 60.5 ml LVAs ap2 10.2 cm\S\2 LVLs ap2 5.8 cm ESV(MOD-sp2) 15.1 ml ESV(sp2-el) 15.2 ml EF(MOD-sp2) 73.7 % EF(sp2-el) 74.9 % LVLd %diff -2.81 % EDV(MOD-bp) 53.9 ml LVLs %diff -6.96 % ESV(MOD-bp) 14.0 ml EF(MOD-bp) 74.0 % SV(MOD-sp4) 38.2 ml SI(MOD-sp4) 20.3 ml/m\S\2 SV(MOD-sp2) 42.2 ml SI(MOD-sp2) 22.4 ml/m\S\2 SV(MOD-bp) 39.9 ml SI(MOD-bp) 21.2 ml/m\S\2 SV(sp4-el) 40.4 ml SI(sp4-el) 21.4 ml/m\S\2 SV(sp2-el) 45.3 ml SI(sp2-el) 24.1 ml/m\S\2 Doppler Measurements and Calculations MV E max marcia 69.8 cm/sec MV A max marcia 35.9 cm/sec MV E/A 1.9 MV dec time 0.18 sec Ao V2 max 102.5 cm/sec Ao max PG 4.2 mmHg Ao max PG (full) 1.5 mmHg FLORIAN(V,A) 1.9 cm\S\2 FLORIAN(V,D) 1.9 cm\S\2 LV V1 max PG 2.7 mmHg LV V1 max 81.5 cm/sec MR max marcia 262.0 cm/sec MR max PG 27.4 mmHg PA V2 max 56.6 cm/sec PA max PG 1.3 mmHg PI end-d marcia 114.3 cm/sec
--- NOTE | 2016-11-26 17:18 | Procedure Note ---
Pre-Mod Sedation Assessment General Date of Moderate Sedation: Nov 26, 2016. Vital Signs: Vital Signs Past 12 Hours Date Time Temp Pulse Resp B/P (MAP) Pulse Ox O2 Delivery O2 Flow Rate FiO2 11/26/16 16:00 Room Air 11/26/16 13:52 36.3 63 18 102/66 (78) 99 Room Air 11/26/16 12:15 Room Air 11/26/16 10:39 36.3 72 18 120/74 98 Room Air 11/26/16 08:30 Room Air 11/26/16 08:05 36.3 72 18 120/74 (89) 98 Room Air Review Cardiovascular: regular rate, rhythm, no edema Abdomen: normal bowel sounds, non tender Lungs: chest non-tender, lungs clear Pre-Sedation Airway Assessment Oral Cavity: WNL Able to Visualize Vocal Cords: No Short Thick Neck: No Hx of Sleep Apnea: No Smoking Status: Never Smoker Mallampati Classification: Class II ASA Classification: Class II Procedure Planning Contraindications-for Mod Sed: None Yes Notes The planned sedation has been discussed with the patient and consent obtained. I have identified the patient, determined the appropriateness of sedation and have assessed the patient immediately prior to the procedure. All medicine(s) and interventions are by my order.
--- NOTE | 2016-11-26 17:19 | Procedure Note ---
Post-Mod Sedation Assessment General Date of Moderate Sedation Nov 26, 2016. Vital Signs: Vital Signs Past 12 Hours Date Time Temp Pulse Resp B/P (MAP) Pulse Ox O2 Delivery O2 Flow Rate FiO2 11/26/16 16:00 Room Air 11/26/16 13:52 36.3 63 18 102/66 (78) 99 Room Air 11/26/16 12:15 Room Air 11/26/16 10:39 36.3 72 18 120/74 98 Room Air 11/26/16 08:30 Room Air 11/26/16 08:05 36.3 72 18 120/74 (89) 98 Room Air Review - Discharge Criteria Vital Signs Stable: Yes Alert/Oriented/Conversant: Yes Returned to Baseline Mental St: Yes Nausea Absent/Minimal: Yes Pain/Discomfort/Absent/Minimal: Yes Normal/Baseline Respirations: Yes Active Bleeding?: No Pt Received D/C Instructions: N/A Prescriptions Given: None Specific Proced. D/C Criteria Distal Pulses Present (Cardiac: Yes Groin site assessed-Card Cath: N/A Voided Prior To Discharge: N/A Discharged Patients Adult Escort/Transportation: Yes
--- NOTE | 2016-11-26 17:45 | Cardiac Catheterization ---
Procedure Note Procedure Date Nov 26, 2016. Pre-Procedure Diagnosis Non STEMI AUC Score 7 Post-Procedure Diagnosis Normal Coronary Arteries, Normal Intracardiac Pressures Procedure(s) Performed Coronary Angiography, Left Heart Cath [employer](s) jaspreet Estimated Blood Loss 10 Medication(s) Fentanyl, Heparin, Nitroglycerin, Versed, Lidocaine 1% Summary of Findings Indication: NSTEMI Access: 6Fr Slender Right radial artery Catheters: [place], Pigtail Findings: LM - Angiographically normal LAD - Angiographically normal, slow flow Circumflex - Dominant, angiographically normal, slow flow RCA - Small, non-dominant, angiographically normal, slow flow. LVEDP - 2 LVEF 60-65%. No apparent wall motion abnormalities. No significant MR. Arterial Closure: TR Band Summary: 1. Essentially normal coronary arteries 2. Normal intracardiac filling pressure 3. Normal LV systolic function Recommendations: No significant coronary artery disease to explain troponin elevation. Suspect some component of atypical stress induced CM with microvascular dysfunction ( slow flow). Less likely myocarditis, PE. Low suspicion due to rate controlled AF. Continue ASCVD risk factor modification Start NOAC for AF and continue rate control Hemodynamics Rest Ao: 82/64/73 Final Ao: 97/59/73 LV: 90/2 Recommendations Medical therapy and/or Counseling Specimens None Radiation Exposure (mGy) 447 Contrast (mls) 40 Fluids (cc crystalloids) 300 Drains none Anesthesia moderate Procedural Complication(s) None Disposition PCU ACC Data Cardiac Status Clinical evaluation leading to the procedure CAD Presntation: Non STEMI Anginal Classification: CCS IV Heart Failure: No, NYHA Class: CCS I Cardiogenic Shock w/in 24Hrs: No Cardiac Arrest w/in 24Hrs: No Imaging studies past 6 months: Yes Stress studies past 6 months: No Standard Exercise Stress Test: No Stress Echocardiogram: No Stress Testing w/SPECT MPI: No Cardiac CTA: No Coronary Anatomy Dominant: Left Left Main (% Stenosis): Normal LAD (% Stenosis): Normal Circumflex (% Stenosis): Normal RCA (% Stenosis): Normal Closure Device Percutaneous Entry Location: Radial Closure Device: Radial Band Recommendations: Medical therapy and/or Counseling Intraprocedure Events Significant Dissection: No Perforation: No
[2016-11-26 18:32] LABS: PARTIAL THROMBOPLASTIN RATIO 4.4
[2016-11-26] MEDS ORDERED: HEPARIN 25,000 UNIT/500ML D5W 500 ML IV PRN (21:00)
[2016-11-26 21:54] LABS: PARTIAL THROMBOPLASTIN RATIO 1.1
[2016-11-27 03:53] VITALS: BP 108/64; PULSE 68; TEMP 36.4; O2SAT 96
[2016-11-27 04:01] LABS: HEMATOCRIT 44.2 % (42-52); MEAN CELL VOLUME 95.7 fL (80-100); MEAN CORPUSCULAR HGB CONC 35.5 g/dl (32-36); MEAN PLATELET VOLUME 9.8 fL (7.4-10.4); PLATELET COUNT 193 K/uL (130-400); RED BLOOD COUNT 4.62 M/uL (4.7-6.1); WHITE BLOOD COUNT 7.11 K/uL (4.8-10.8)
[2016-11-27 04:21] LABS: BUN/CREATININE RATIO 12.5 (10-20); CREATININE 1.4 mg/dl (0.60-1.40); POTASSIUM 4.5 mmol/L (3.5-5.1)
[2016-11-27 04:39] LABS: CALCIUM 8.1 mg/dl (8.5-10.1)
[2016-11-27] MEDS: SODIUM CHLORIDE 0.9% 1000ML 1,000 ML IV SCH (05:04)
[2016-11-27] MEDS: LEVOTHYROXINE 25 MCG TAB PO SCH (05:04)
[2016-11-27] MEDS ORDERED: OPTIRAY 320 IV PRN (07:00)
[2016-11-27 07:56] VITALS: BP 109/71; PULSE 73; TEMP 36.3; O2SAT 97
--- NOTE | 2016-11-27 08:16 | DIAGNOSTIC IMAGING REPORT ---
CHEST CTA for PULMONARY ARTERIES CT DOSE: 259.28 mGy.cm HISTORY: Short of breath. TECHNIQUE: Multiaxial CT images of the chest were performed following the intravenous administration of contrast to evaluate the pulmonary arteries. Maximal intensity projection images were also obtained. COMPARISON STUDY: Chest 11/25/2016. FINDINGS: There is a normal caliber thoracic aorta with no evidence for dissection. There is no evidence for pulmonary embolus. No pleural effusions. No pneumothorax. The liver and spleen are unremarkable. No mediastinal or hilar lymphadenopathy. The central airways are patent. A few biapical linear scarlike densities. No focal lung consolidations to suggest pneumonia. Mild nodular thickening along the major fissures which is likely benign. 3 mm subpleural nodular density within the right middle lobe image 43. This is also likely benign. IMPRESSION: No evidence for pulmonary embolus. Electronically signed by: Jc Taylor M.D. 11/27/2016 8:14 AM Dictated Date/Time: 11/27/2016 8:07 AM
[2016-11-27] MEDS: METOPROLOL SUCC 25MG EXT REL TAB PO SCH (08:27)
[2016-11-27] MEDS: ATORVASTATIN 10 MG TAB PO SCH (08:27)
[2016-11-27] MEDS: CITALOPRAM 20 MG TAB PO SCH (08:27)
[2016-11-27] MEDS: FAMOTIDINE IV INJ 20 MG in DEXTROSE 5% 100ML 100 ML IV SCH (08:28)
--- NOTE | 2016-11-27 10:06 | CARDIOLOGY PROGRESS NOTE ---
DATE: 11/27/2016 DATE: 11/27/2016. SUBJECTIVE: Mr. Calderón is a very pleasant 66-year-old white male who presented acutely on 11/25/2016 complaining of right-sided chest pressure with associated nausea and one episode of vomiting and he was also incidentally noted to be in newly diagnosed and rate controlled Atrial Fibrillation (of uncertain duration). The patient's initial cardiac enzymes were negative, and his EKG showed no acute changes. Subsequent serial cardiac enzymes showed a positive troponin I level, so he underwent a CARDIAC CATHETERIZATION yesterday late afternoon which showed the followin. LMCA -- Angiographically normal. 2. LAD -- Angiographically normal, slow flow. 3. LCx -- Dominant vessel, angiographically normal with slow flow. 4. RCA -- Small vessel, nondominant. Angiographically normal, slow flow. 5. Normal LVEF of 60% to 65% without regional wall motion abnormalities. 6. 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 The patient is currently being seen in room 243 bed 1, and he offers no complaints. He denies any complications at his right radial arterial access site. He has not had any further chest discomfort whatsoever since being admitted. He specifically denies any chest pain, heaviness, tightness, pressure or discomfort. He has not had any neck, jaw, back, or arm pain. No shortness of breath, unusual dyspnea on exertion, orthopnea, or PND. He further denies any palpitations, tachypalpitations, syncope, or near syncope. Please note that his atrial fibrillation remains rate controlled, and he is completely asymptomatic with it. The patient has not had any signs or symptoms of stroke or mini stroke. PHYSICAL EXAMINATION: VITAL SIGNS: Temperature is 36.3* C, HR = 70-75 beats per minute and irregularly irregular, respiratory rate is 13 and unlabored, blood pressure is 109/71, SPO2 is 97% on room air. GENERAL: The patient is in no acute distress. HEAD, EYES, EARS, NOSE, AND THROAT: Head is atraumatic, normocephalic. EOMs intact. Sclerae are anicteric. Face asymmetric. NECK: Without thyromegaly, adenopathy or JVD. CHEST AND LUNGS: Clear to auscultation throughout all lung duval, no wheezes, rales or rhonchi. CARDIOVASCULAR: S1 and S2 are irregularly irregular with a controlled ventricular response rate. No murmurs, gallops or rubs. PMI is nondisplaced. No lifts, heaves, or thrills. No abdominal, aortic or renal bruits. ABDOMINAL EXAMINATION: Bowel sounds present. No masses, organomegaly or tenderness. EXTREMITIES: Without edema. Intact posterior tibial and radial pulses bilaterally. Right radial access site is dressed. No hematomas. No ecchymosis. NEUROLOGIC EXAMINATION: The patient is awake, alert and oriented. Pleasant and cooperative. Answers questions appropriately. Speech is clear. Normal movement in all 4 extremities. Gait pattern unremarkable. Cardiac Catheterization 11/26/2016 as described above NORMAL CORONARY ARTERIES with slow flow. Echocardiogram 11/26/2016 shows: 1. Normal LV size with hyperdynamic LV systolic function. 2. LVEF > 70%. No RWMA's. 3. Mild MR. 4. Normal RV size and systolic function. ASSESSMENT: 1. Newly diagnosed Atrial Fibrillation, rate controlled and asymptomatic. 2. Atypical right-sided chest pain with positive troponin. Technically, this is an NSTEMI, but it was most likely the result of a Catecholamine Mediated Microvascular Dysfunctional State (similar to Tako-tsubo). 3. Grief. 4. Borderline Hypertension. 5. Prediabetes. 6. Normal coronary arteries on Cardiac Catheterization. PLAN: 1. The patient remains asymptomatic. 2. The patient is stable from a cardiac standpoint for discharge to home. 3. He should be sent home on Toprol-XL 25 mg daily. 4. Begin Eliquis 5 mg b.i.d. or Xarelto 20 mg daily, which will likely be a long-term / lifetime medication (as his AFib is completely asymptomatic). 5. We had a long discussion regarding his hospitalization and all pertinent findings. 6. The patient may progress activities as tolerated upon discharge. 7. We will plan on seeing him back in the office on 12/16/2016 at 3:45 p.m. We will likely set him up for an elective electrical cardioversion at that time. 8. Continue psychotropic medications due to current grief reaction. Thank you for allowing us to participate in this patient's care. CONNIE
[2016-11-27] MEDS ORDERED: TPRSR25 PO (10:37)
[2016-11-27] MEDS ORDERED: APIX1TAB3 PO (10:37)
[2016-11-27] MEDS ORDERED: LEVO112T2 PO (10:37)
--- NOTE | 2016-11-27 10:51 | Discharge Instructions ---
Discharge Instructions Date of Service Nov 27, 2016. Admission Reason for Admission: New Onset A-Fib Discharge Discharge Diagnosis / Problem: Chest pain - "classic" heart attack ruled out; normal heart cath. A. fib. Discharge Goals Goal(s): Learn about illness, Diagnostic testing, Therapeutic intervention Activity Recommendations Activity Limitations: as noted below ACTIVITY RECOMMENDATIONS following your heart catheterization: Excess manipulation of the RIGHT wrist should be avoided for the next 24-48 hours. * No lifting over 2 pounds (approximately a 1/2 gallon of milk) with the RIGHT arm for 24 hours. * No strenuous activity such as bowling or tennis for 3 days. * Keep the site of the procedure covered with a bandage for 24 hours. *You may shower at this time. However, do not take a tub bath or submerge the puncture site in water for the next 3 days. *Do not operate any motorized equipment for 3 days. This includes driving your car. SPECIAL CARE INSTRUCTIONS: The site may be slightly bruised and sore following your procedure. Should any of the following occur, contact the Dr. who performed your procedure. 1. Redness/inflammation, swelling, chills, or fever, or colored drainage at procedure site within 3-7 days after your procedure. 2. Coldness, discoloration, ongoing numbness, severe pain, or swelling. Expect mild tingling of hand and tenderness at the puncture site for up to three days. If this persists beyond three days, or other symptoms develop, notify the Dr. who performed your procedure. BLEEDING: If the procedure site on your wrist begins to bleed, do not panic 1. Place 1 or 2 fingers firmly just slightly above the insertion site to stop the bleeding. You may be able to feel your pulse as you hold pressure. 2. Lift your finger after 5 minutes to see if the bleeding has stopped. 3. Once the bleeding has stopped, gently wipe the wrist area clean with a bandage. * If the bleeding from your wrist does not stop after 10 minutes, or if there is a large amount of bleeding or spurting, call 911 (do not drive yourself to the hospital). SKIN IRRITATION: * You may experience some redness and/or swelling in the area where radiation was administered. If any skin irritation occurs, please contact your family physician. Instructions / Follow-Up Instructions / Follow-Up From Dr. Foss - 1. Atrial fibrillation - * your a. fib is under good control at this time * please take the following medications - * metoprolol xl 25mg once daily; start this TOMORROW * eliquis 5mg twice daily; start this TONIGHT * Mr. Julius Garcia will see you in December for the a. fib. Cardioversion may be considered at that time to try and restore a normal heart rhythm if you are still in a. fib. 2. Blood thinner - * Eliquis is your new blood thinner * You are on this medication so that you do not develop a stroke as a result of the a. fib * A. fib puts you at risk of stroke because you can develop tiny blood clots IN the heart from a. fib; in turn these little blood clots can go to the brain and cause a stroke * the blood thinner decreases the chances that this will happen * if you see blood in your stool, blood in your urine, have a severe nosebleed, etc - please let your doctors know right away * do not use a traditional razor/straight razor to shave; use an electric shaver 3. Please speak to Dr. Bertrand about getting an MRI of the brain because of the visual disturbance you had several weeks ago. 4. Your TSH (thyroid level) was slightly high at 5.9. Please speak to the provider that is managing your thyroid medication and let them know this result. 5. You can stop your baby aspirin at this time. 6. Return to [facility] if: * you develop recurrent chest pain, difficulty breathing, rapid heart beat/ palpitations, bleeding from the stool/urine/etc. 7. Follow-up appointments: * TASIA Calabrese - cardiology at [facility] - 12/16/16 at 345pm * see Dr. Bertrand within 1 week * return to [facility] on 11/29/16, in the morning for your blood draw * report to the Main Entrance for this * you do not need to be fasting 8. chest pain and vomiting at time of admission - * The exact cause was uncertain. * However, despite the blood work for the heart being abnormal, there was no evidence of a classic heart attack, no blood clots in the lungs, no pneumonia, etc. Current Hospital Diet Patient's current hospital diet: Regular Diet Discharge Diet Recommended Diet: AHA Diet (Heart Healthy) Procedures Procedures Performed: 1. echocardiogram - normal heart function. 2. CAT scan of the lungs - no blood clots, no pneumonia. 3. cardiac catheterization - NORMAL CORONARY ARTERIES; NO PLAQUE build-up. Pending Studies Studies pending at discharge: no Laboratory Results Lipid Panel Test 11/26/16 09:03 Range/Units Triglycerides Level 54 0-150 mg/dl Cholesterol Level 186 0-200 mg/dl HDL Cholesterol 67 mg/dl Cholesterol/HDL Ratio 2.8 LDL Cholesterol, Calculated 108 mg/dl Medical Emergencies . Who to Call and When: Medical Emergencies: If at any time you feel your situation is an emergency, please call 911 immediately. . Non-Emergent Contact Non-Emergency issues call your: Primary Care Provider Call Non-Emergent contact if: temperature is above 100.5, your pain is not controlled, your pain is worsening, your pain is unusual for you, your pain is concerning you, you have any medication questions . . "Provider Documentation" section prepared by James Foss. . VTE Core Measure Inpt VTE Proph given/why not?: Other Anticoagulation
[2016-11-27 11:24] VITALS: BP 109/71; PULSE 73; TEMP 36.3; O2SAT 97
--- NOTE | 2016-12-02 00:19 | Discharge Summary ---
Discharge Summary Date of Service Dec 01, 2016. Discharge Summary Admission Date: Nov 25, 2016 at 10:00 Discharge Date: Nov 27, 2016 Discharge Disposition: Home Principal Diagnosis: NSTEMI - type 2 / myocardial demand ischemia Problems/Secondary Diagnoses: 1. CKD stage 2 2. new onset atrial fibrillation 3. hypothyroidism 4. h/o pre-diabetes 5. h/o pre-hypertension 6. h/o Meniere's disease 7. anxiety disorder Procedures: 1. echocardiogram: * -- Conclusions -- * Left ventricular systolic function is normal. * There is mild mitral regurgitation. 2. cardiac catheterization: Nishant Chris MD Findings: LM - Angiographically normal LAD - Angiographically normal, slow flow Circumflex - Dominant, angiographically normal, slow flow RCA - Small, non-dominant, angiographically normal, slow flow. 3. CTA chest: FINDINGS: There is a normal caliber thoracic aorta with no evidence for dissection. There is no evidence for pulmonary embolus. No pleural effusions. No pneumothorax. The liver and spleen are unremarkable. No mediastinal or hilar lymphadenopathy. The central airways are patent. A few biapical linear scarlike densities. No focal lung consolidations to suggest pneumonia. Mild nodular thickening along the major fissures which is likely benign. 3 mm subpleural nodular density within the right middle lobe image 43. This is also likely benign. IMPRESSION: No evidence for pulmonary embolus. Consultations: cardiology - TASIA Calabrese / Nishant Chris MD Medication Reconciliation New Medications: Apixaban (Eliquis) 5 Mg Tab 5 MG PO BID, #60 TAB 5 Refills blood thinner for your a. fib Metoprolol Succinate (Metoprolol Succinate ER) 25 Mg Tabcr 25 MG PO QAM, #30 TAB 5 Refills for your a. fib Changed Medications: Levothyroxine Sodium (Synthroid) 112 Mcg Tab 1 TAB PO DAILY for 30 Days, #30 TAB 5 Refills (Changed from: Levothyroxine Sodium 25 Mcg Tab 1 Tab PO DAILY 30 Days #30 TAB Ref 5) Continued Medications: Albuterol Hfa (Ventolin Hfa) 200 Puffs/21650 Mcg Aers 2-4 PUFFS INH Q6H, #1 INHALER Cetirizine (Zyrtec) 10 Mg Tab 10 MG PO DAILY, 0 Refills Cholecalciferol (Vitamin D3) 1,000 Unit Tab 1 TAB PO DAILY for 30 Days, #30 TAB 5 Refills Citalopram Hydrobromide (Celexa) 10 Mg Tab 1 TAB PO DAILY for 30 Days, #30 TAB 2 Refills Fish Oil ([place]-3) 1 Ea Cap 2 CAP PO DAILY, 0 Refills Fluticasone Propionate (Nasal) (Flonase Allergy Relief) 50 Mcg/Act Spr Lorazepam (Ativan) 2 Mg Tab Vitamins C & E (Vitamin C) 1 Cap Cap Referrals At Discharge Follow up Referrals: [facility] Referral - 12/16/16 with Julius [email or web address].[email or web address] Discharge Exam Physical Exam: General Appearance: WD/WN, no apparent distress ENT: pharynx normal Neck: no JVD Respiratory/Chest: lungs clear, no respiratory distress, no accessory muscle use Cardiovascular: no gallop, no murmur, normal peripheral pulses, + irregularly irregular Abdomen / GI: normal bowel sounds, non tender, soft, no organomegaly Extremities: no pedal edema Neurologic/Psychiatric: alert, oriented x 3 Skin: + pertinent finding (right wrist - radial artery region w/o hematoma) Hospital Course HISTORY OF PRESENT ILLNESS: 66 year old male with past medical history of borderline HTN, anxiety, Meniere' s disease, and border line type 2 diabetes who presented to the ED with chest pain associated with nausea, vomiting and dizziness. The pain was severe and was referred to the right shoulder. He drove his car to his PCP's office and en route had emesis once again. When he arrived to his PCP they called an ambulance due to his chest pain and he was transported to the [facility] ER. Upon presentation he was found to have new-onset atrial fibrillation. HOSPITAL COURSE: Following admission the patient had no further chest pain, nausea, or emesis. Initial troponin was negative, but serial enzymes became positive with peak troponin of 7.5. He was started on heparin drip and beta chantal. Echocardiogram was obtained and was entirely normal. The patient ultimately underwent cardiac catheterization with NORMAL coronary arteries. Blood flow through the arteries was noted to be slow, however. The etiology of the patient's type 2 NSTEMI / myocardial demand ischemia was not entirely known. Due to recent automobile travel he underwent CTA chest which demonstrated NO pulmonary embolus. He had no evidence of myocarditis or pericarditis. A variant of Takotsubo's was possible but not confirmed. Non-cardiac causes of troponin elevation were not seen either (e.g. acute renal failure, etc). Mr. Mcdonalds a. fib remained under excellent rate control his entire stay. He will discharge to home on beta chantal as well as eliquis twice daily for stroke prevention. The a. fib was NOT felt to be the cause of his presenting chest pain and other symptoms. Lastly, Mr. Preston TSH was mildly elevated. He reported that his synthroid dose was recently changed and thus no adjustment was made in his medication while hospitalized. Total Time Spent: Greater than 30 minutes This includes examination of the patient, discharge planning, medication reconciliation, and communication with other providers. Discharge Instructions Please refer to the electronic Patient Visit Report (Discharge Instructions) for additional information. Follow-Up 1. report back to [facility] on 11/29/16 for repeat BMP to ensure stability of creatinine 2. see cardiology - TASIA Calabrese - December 16, 2016, as scheduled Additional Copies To Florencio Bertrand M.D.; Nishant Chris MD; Julius Garcia,P.A.
== END 2016-11-27 13:03 | disposition home or self-care (01) | DRG 287 ==
LOC: EDBD 08:18 → C.EDA 08:20 → C.2T 10:00 → ENRESERV 12:01
PROVIDERS: ADMIT Internal Medicine; ATTEND Internal Medicine
PROC: B2111ZZ Fluoroscopy of Multiple Coronary Arteries using Low Osmolar Contrast (ICD-10-PCS; principal; 2016-11-26 17:17)
PROC: 4A023N7 Measurement of Cardiac Sampling and Pressure, Left Heart, Percutaneous Approach (ICD-10-PCS; principal; 2016-11-26 17:17)
DX: I48.91 Unspecified atrial fibrillation (principal); R07.89 Other chest pain; F43.21 Adjustment disorder with depressed mood; R03.0 Elevated blood-pressure reading, without diagnosis of hypertension; R73.03 Prediabetes; E03.9 Hypothyroidism, unspecified; F41.9 Anxiety disorder, unspecified; H81.09 Meniere's disease, unspecified ear; Z79.899 Other long term (current) drug therapy

== ENCOUNTER → 2016-11-29 | Outpatient (CLI) | payer BC ==
[~2016-11-29] MED LIST changes: -ALBUAER2 INH; -AMB10 PO; -ANT25 PO; +APIX1TAB3 PO; -ASCA500 PO; +ATV/2; -ATV2 PO; +CHOL1000 PO; -CHOL100010 PO; +CITA10TA8 PO; -CLX20 PO; -FLNIN NAE; +FLUT0.15; -FSM70 PO; +LEVO112T2 PO; -LEVO50TA60 PO; +TPRSR25 PO; -UNABLE; -VITA400C15 PO; +VITACAP26; +VNTHFA/IN INH
[2016-11-29 10:48] LABS: BLOOD UREA NITROGEN 23 mg/dl (7-18); BUN/CREATININE RATIO 16.6 (10-20); CALCIUM 8.8 mg/dl (8.5-10.1); CARBON DIOXIDE 31 mmol/L (21-32); CHLORIDE 103 mmol/L (98-107); GLUCOSE 103 mg/dl (70-99); SODIUM 141 mmol/L (136-145)
== END | disposition home or self-care (01) ==
LOC: C.LAB 09:41
PROVIDERS: ATTEND Internal Medicine Interventional Cardiology
DX: N28.9 Disorder of kidney and ureter, unspecified (principal)

== ENCOUNTER → 2016-12-08 | Outpatient (CLI) | payer BC ==
[~2016-12-08] MED LIST changes: +GADAVIST IV PRN
--- NOTE | 2016-12-08 10:50 | DIAGNOSTIC IMAGING REPORT ---
BRAIN COMBO HISTORY: 66-year-old male with Meniere disease dense with nausea and headache. COMPARISON: None available TECHNIQUE: Multiplanar multisequence MRI of the brain and internal auditory canals were obtained both with and without the use of 8 mL Gadavist IV contrast. FINDINGS: There is no restricted diffusion to suggest acute ischemia. Midline structures including the corpus callosum, optic chiasm, infundibulum and pituitary gland and brainstem appear unremarkable on the sagittal T1 series. No cerebellar tonsillar herniation. Minimal periventricular T-2/flair prolongation suggests chronic microischemic changes (for example seen on image 16 of the coronal FLAIR series). No acute intracranial hemorrhage, midline shift, abnormal extra-axial collections, mass or hydrocephalus. The course of the 7th and 8th cranial nerves appear unremarkable. No cerebellar pontine angle mass is identified. Posterior fossa structures are unremarkable. No abnormal enhancement. There is minimal mucosal thickening of the maxillary and sphenoid sinuses. Moderate mucosal thickening involves the inferior frontal and bilateral ethmoid air cells. Mastoid air cells are clear. IMPRESSION: 1. No acute intracranial abnormality. Negative for hemorrhage or acute ischemia. 2. Normal appearance of the bilateral internal auditory canals without mass or abnormal enhancement. 3. Moderate ethmoid sinus disease. Electronically signed by: Lenny Locke 12/08/2016 10:10 AM Dictated Date/Time: 12/08/2016 9:55 AM
== END | disposition home or self-care (01) ==
LOC: C.MRIBC 08:43
PROVIDERS: ATTEND Nurse Practitioner Family
DX: H53.8 Other visual disturbances (principal); H81.03 Meniere's disease, bilateral

== ENCOUNTER → 2017-06-04 | Outpatient (CLI) | payer BC ==
[~2017-06-04] MED LIST changes: -GADAVIST IV PRN
== END | disposition home or self-care (01) ==
LOC: C.MAMM 15:05
PROVIDERS: ATTEND Family Medicine
DX: M85.80 Other specified disorders of bone density and structure, unspecified site (principal)